=== PATIENT | male | born 1980 | race Caucasian/White ===

== ENCOUNTER 2016-06-03 17:21 | Emergency (ER) | payer OTHER ==
[~2016-06-03] VITALS: Wt 81.0 kg
[2016-06-03] MEDS ORDERED: BELLADONNA/PHENOBARBITAL TAB PO STA (17:34)
[2016-06-03] MEDS ORDERED: ONDANSETRON 4 MG INJ IV STA (17:34)
[2016-06-03] MEDS ORDERED: LIDOCAINE/MYLANTA 40 ML BTL PO STA (17:34)
[2016-06-03] MEDS ORDERED: FAMOTIDINE 20 MG INJ IV STA (17:34)
[2016-06-03] MEDS ORDERED: SOD CHLORIDE 0.9% 1,000 ML IV STA (17:34)
[2016-06-03 17:44] VITALS: RESP 16; TEMP 98.4
--- NOTE | 2016-06-03 17:53 | ERD ---
ER Documentation Chief Complaint Date/Time DATE: 06/03/16 TIME: 17:51 Chief Complaint ABD PAIN N/V THIS MORNING HEAVILY DRINKING; ALCHOL WITHDRAWL HPI 36-year-old male who recently has been abusing alcohol for the past month who states that he drinks heavily early this morning and yesterday evening. Today he is feeling slightly tremulous. He has multiple episodes of nonbloody nonbilious followed by 1-2 episodes of scant blood-tinged emesis. He describes epigastric abdominal pain that is moderate, cramping with slight radiation to his back. No fevers or chills. No headache or fall. No melena. No history of cirrhosis or esophageal varices. ROS All systems reviewed and are negative except as per history of present illness. Medications Home Meds Active Scripts Famotidine* (Pepcid*) 20 Mg Tablet, 20 MG PO BID Y for abdominal pain for 4 Days , TAB Prov:LEO SOMMERS MD 06/03/16 Ondansetron (Ondansetron Odt) 4 Mg Tab.rapdis, 4 MG PO Q6H Y for NAUSEA AND/OR VOMITING, #30 TAB Prov:LEO SOMMERS MD 06/03/16 Reported Medications Venlafaxine Hcl* (Venlafaxine Hcl*) 75 Mg Tablet, 75 MG PO BID, TAB 06/03/16 Allergies Allergies: Coded Allergies: No Known Allergy (Unverified , 06/03/16) PMhx/Soc History of Surgery: Yes (CHOLECYSTECTOMY) Anesthesia Reaction: No Hx Neurological Disorder: No Hx Respiratory Disorders: No Hx Cardiac Disorders: No Hx Psychiatric Problems: No Hx Miscellaneous Medical Probl: No Hx Alcohol Use: Yes (OCCASSIONAL) Hx Substance Use: No Hx Tobacco Use: Yes (MARIJUANA) FmHx Family History: No diabetes Physical Exam Vitals Vital Signs Date Time Temp Pulse Resp B/P Pulse Ox O2 Delivery O2 Flow Rate FiO2 06/03/16 17:44 98.4 77 16 150/74 98 Room Air 06/03/16 17:25 99.0 18 18 166/72 99 Physical Exam General: Well developed, well nourished, no acute distress Head: Normocephalic, atraumatic. Eyes: Pupils equally reactive, EOM intact ENT: Moist mucous membranes Neck: Supple, no lymphadenopathy Respiratory: Lungs clear bilaterally, no distress Cardiovascular: RRR, no murmurs, rubs, or gallops Abdominal: Soft, non-tender, non-distended, no peritoneal signs, negative Hansen sign : Deferred MSK: No edema, no unilateral swelling, 5/5 strength Neurologic: Alert and oriented, moving all extremities, normal speech, no focal weakness, no cerebellar signs, slight tremor, no asterixis Skin: No rash Psych: Normal mood Result Diagram: 06/03/16 1800 06/03/16 1800 Results 24 hrs Laboratory Tests Test 06/03/16 18:00 White Blood Count 11.110^3/ul Red Blood Count 4.6610^6/ul Hemoglobin 13.9g/dl Hematocrit 40.9% Mean Corpuscular Volume 87.8fl Mean Corpuscular Hemoglobin 29.8pg Mean Corpuscular Hemoglobin Concent 34.0g/dl Red Cell Distribution Width 12.7% Platelet Count 19561^3/UL Mean Platelet Volume 9.0fl Neutrophils % 74.7% Lymphocytes % 15.4% Monocytes % 8.4% Eosinophils % 0.7% Basophils % 0.4% Nucleated Red Blood Cells % 0.0/100WBC Neutrophils # 8.310^3/ul Lymphocytes # 1.710^3/ul Monocytes # 0.910^3/ul Eosinophils # 0.110^3/ul Basophils # 0.010^3/ul Nucleated Red Blood Cells # 0.010^3/ul Sodium Level 141mmol/L Potassium Level 3.4mmol/L Chloride Level 99mmol/L Carbon Dioxide Level 28mmol/L Anion Gap 17 Blood Urea Nitrogen 9mg/dl Creatinine 0.94mg/dl Glucose Level 121mg/dl Calcium Level 9.3mg/dl Total Bilirubin 0.5mg/dl Direct Bilirubin 0.00mg/dl Indirect Bilirubin 0.5mg/dl Aspartate Amino Transf (AST/SGOT) 61IU/L Alanine Aminotransferase (ALT/SGPT) 85IU/L Alkaline Phosphatase 88IU/L Total Protein 7.9g/dl Albumin 4.4g/dl Globulin 3.50g/dl Albumin/Globulin Ratio 1.25 Lipase 157U/L Current Medications Medications (Trade) Dose Ordered Sig/Lina Route PRN Reason Start Time Stop Time Status Last Admin Dose Admin Sodium Chloride (NS) 1,000 ml @ 1,000 mls/hr Q1H STAT IV 06/03/16 17:34 06/03/16 18:33 DC 06/03/16 17:59 Ondansetron HCl (Zofran Inj) 4 mg ONCE STAT IV 06/03/16 17:34 06/03/16 17:36 DC 06/03/16 17:59 Famotidine (Pepcid Iv) 20 mg ONCE STAT IV 06/03/16 17:34 06/03/16 17:36 DC 06/03/16 17:57 Miscellaneous Medication (Gi Cocktail (2)) 40 ml ONCE STAT PO 06/03/16 17:34 06/03/16 17:36 DC 06/03/16 17:59 Belladonna/ Phenobarbital () 2 tab ONCE STAT PO 06/03/16 17:34 06/03/16 17:36 DC 06/03/16 17:58 Folic Acid (Folic Acid) 1 mg ONCE ONCE PO 06/03/16 18:00 06/03/16 18:01 DC 06/03/16 18:24 Thiamine HCl (Vitamin B1) 100 mg ONCE ONCE PO 06/03/16 18:00 06/03/16 18:01 DC 06/03/16 18:24 Lorazepam (Ativan) 1 mg ONCE ONCE IV 06/03/16 18:00 06/03/16 18:01 DC 06/03/16 18:02 Procedures/MDM LAB INTERPRETATION: No anemia, no leukocytosis, negative lipase MEDICAL DECISION MAKING: The patient exhibits very mild early withdrawal syndrome signs however no tachycardia or hypertension. He is slightly tremulous. Patient is likely dehydrated. His abdominal pain is likely secondary to alcoholic gastritis. Consider possible pancreatitis. The patient does describe multiple episodes of vomiting with likely Felicita-Chavez tear. No evidence of cirrhosis no signs or symptoms concerning for aggressive upper GI hemorrhage. I doubt esophageal varices or peptic ulcer disease. Given the description of multiple episodes of vomiting with concomitant scant blood-tinged emesis I do not believe that the patient warrants inpatient hospitalization for GI bleed workup. This is very consistent with Felicita-Chavez injury. The patient will benefit from fluid resuscitation, GI cocktail and evaluation and rule out of pancreatitis. Patient will be given small dose of Ativan. Oral thiamine and folic acid provided. The patient has gone to detox before. He has not been to AA. He does not have a sponsor. ER COURSE: The patient's BUN to creatinine ratio does not suggest GI bleed. The patient continues to be well-appearing here in the emergency room. No signs of persistent tremor. No indication for Librium initiation. The patient is safe for discharge. Outpatient social media specialist resources and detox center referral has been provided. I kept the patient and/or family informed of laboratory and diagnostic imaging results throughout the emergency room course. DISPOSITION PLAN: We discussed follow up with the patient's primary care doctor within 24 to 48 hours as needed. We also discussed return to the emergency room for worsening symptoms or worsening condition. Outpatient referral: None required Discharge Medications: Zofran, Pepcid Departure Diagnosis: Primary Impression: Alcoholic gastritis Chronicity: acute Gastritis bleeding: without bleeding Qualified Code: K29.20 - Acute alcoholic gastritis without hemorrhage Additional Impression: Felicita-Chavez syndrome Condition: Good LEO SOMMERS MD Jun 03, 2016 17:53
[2016-06-03] MEDS ORDERED: FOLIC ACID 1 MG TAB PO ONE (18:00)
[2016-06-03] MEDS ORDERED: LORAZEPAM 2 MG INJ IV ONE (18:00)
[2016-06-03] MEDS ORDERED: THIAMINE 100 MG TAB PO ONE (18:00)
[2016-06-03] MEDS ORDERED: VENL75TA PO (18:05)
[2016-06-03 18:12] LABS: ADD SCAN DIFF NO
[2016-06-03 18:18] LABS: BASOPHILS % 0.4 % (0.0-2.0); EOSINOPHILS # 0.1 10^3/ul (0.0-0.5); EOSINOPHILS % 0.7 % (0.0-7.0); HEMATOCRIT 40.9 % (42.0-52.0); HEMOGLOBIN 13.9 g/dl (14.0-18.0); LYMPHOCYTES # 1.7 10^3/ul (0.8-2.9); LYMPHOCYTES % 15.4 % (15.0-51.0); MEAN CORPUSCULAR HEMOGLOBIN 29.8 pg (29.0-33.0); MEAN CORPUSCULAR VOLUME 87.8 fl (82.0-101.0); MONOCYTE # 0.9 10^3/ul (0.3-0.9); MONOCYTES % 8.4 % (0.0-11.0); NEUTROPHIL # 8.3 10^3/ul (1.6-7.5); NEUTROPHILS % 74.7 % (39.0-77.0); PLATELET COUNT 314 10^3/UL (140-415); RED BLOOD COUNT 4.66 10^6/ul (4.70-6.10); RED CELL DISTRIBUTION WIDTH 12.7 % (11.5-14.5); WHITE BLOOD COUNT 11.1 10^3/ul (4.8-10.8)
[2016-06-03 18:24] LABS: ALBUMIN 4.4 g/dl (3.3-4.9); POTASSIUM 3.4 mmol/L (3.5-5.1)
[2016-06-03 18:26] LABS: CREATININE 0.94 mg/dl (0.61-1.24)
[2016-06-03 18:27] LABS: ALBUMIN/GLOBULIN RATIO 1.25; BILIRUBIN,INDIRECT 0.5 mg/dl (0-1.1); BILIRUBIN,TOTAL 0.5 mg/dl (0.2-1.3); CALCIUM 9.3 mg/dl (8.4-10.2); TOTAL PROTEIN 7.9 g/dl (6.1-8.1)
[2016-06-03] MEDS ORDERED: FAMO-18 PO (18:59)
[2016-06-03] MEDS ORDERED: ONDA4TAB14 PO (18:59)
[2016-06-03 19:04] VITALS: BP 120/80; PULSE 87
== END 2016-06-03 19:00 | disposition home or self-care (01) ==
LOC: E/R 17:21
DX: K29.20 Alcoholic gastritis without bleeding (principal); R40.2252 Coma scale, best verbal response, oriented, at arrival to emergency department; K22.6 Gastro-esophageal laceration-hemorrhage syndrome; R11.2 Nausea with vomiting, unspecified; R40.2142 Coma scale, eyes open, spontaneous, at arrival to emergency department; R40.2362 Coma scale, best motor response, obeys commands, at arrival to emergency department
CPT/HCPCS: 80053; 83690; 85025; J2060; J2405; J7030; Z7610; 36415; 96374; 96375

== ENCOUNTER 2018-07-05 17:33 | Emergency (ER) | payer SELFPAY ==
[~2018-07-05] VITALS: Ht 177.8 cm; Wt 90.0 kg
[~2018-07-05 17:33] MED LIST: FAMO-96 PO; ONDA4TAB14 PO; VENL75TA PO
[2018-07-05 17:40] VITALS: BP 162/74; PULSE 64; RESP 18; Ht 177.8 cm; Wt 90.0 kg
== END 2018-07-05 20:11 | disposition left against medical advice (07) ==
LOC: FTE 17:33
DX: Z53.21 Procedure and treatment not carried out due to patient leaving prior to being seen by health care provider (principal)